=== PATIENT | male | born 1970 | race Two or more races ===

== ENCOUNTER 2021-12-17 09:55 | Emergency (ER) | payer OTHER | END 2021-12-17 10:40 | disposition home or self-care (01) | LOC: ER 09:55 | DX: T14.8XXA Other injury of unspecified body region, initial encounter (principal); X58.XXXA Exposure to other specified factors, initial encounter; Y93.89 Activity, other specified; Y92.89 Other specified places as the place of occurrence of the external cause; Y99.8 Other external cause status | CPT/HCPCS: 99281 ==